=== PATIENT | female | born 1975 | race Caucasian/White ===

== ENCOUNTER → 2018-06-02 09:46 | Outpatient (CLI) | payer BC, SELFPAY ==
--- NOTE | 2018-06-02 09:49 | XR_ITS ---
EXAM: XR lumbar spine 6V w bending HISTORY: ITS.REASON: low back pain (FLEXION/EXTENSION) ORDERING PHYSICIAN: Dimple Levy PATIENT AGE: 43 years COMPARISON: None FINDINGS: There is normal curvature and alignment. There is prominent anterior ossific spurring at T11-12 level. All lumbar vertebrae appear intact and disc spaces are well-maintained. There is minimal osteophytic spurring of the anterior superior border of L4. There is no pars defect. Flexion and extension views were obtained showing somewhat decreased range of motion. The SI joints are normal. . IMPRESSION: Moderate degenerative disc disease T11-12 O minor degenerative change at the L3-4 level along with mild decrease in range of motion on flexion and extension views
[2018-06-02 10:55] LABS: Basophils # 0.1 K/mm3 (0-0.2); Basophils % 0.7 % (0.1-2.0); Eosinophils # 0.1 K/mm3 (0.0-0.4); Eosinophils % 1.5 % (0.1-12.0); Hematocrit 43.5 % (37.0-47.0); Hemoglobin 13.8 g/dL (12.2-16.2); Lymphocytes # 2.3 K/mm3 (0.7-4.5); Lymphocytes % 24.6 K/mm3 (10-50); Mean Corpuscular HGB Conc 31.7 g/dL (31.8-35.4); Mean Corpuscular Hemoglobin 26.7 pg (27.0-31.2); Mean Corpuscular Volume 84.4 fl (81-99); Mean Platelet Volume 7.6 fl (7.4-10.4); Monocytes # 0.5 K/mm3 (0.1-1.0); Monocytes % 5.2 % (1.7-9.3); Neutrophils # 6.3 K/mm3 (1.8-7.8); Neutrophils % 68.1 % (37.0-80.0); Platelet Count 282 K/mm3 (142-424); Red Blood Count 5.15 M/mm3 (4.20-5.40); Red Cell Distribution Width 14.1 % (11.5-17.5); White Blood Count 9.2 K/mm3 (4.8-10.8)
[2018-06-02 11:30] LABS: Alanine Aminotransferase 135 U/L (12-78); Albumin Level 3.5 gm/dL (3.4-5.0); Albumin/Globulin Ratio 1.1 (1.1-1.8); Alkaline Phosphatase 113 U/L (46-116); Anion Gap 11.4 mEq/L (5-15); Aspartate Amino Transferase 62 U/L (15-37); Bilirubin,Total 0.2 mg/dL (0.2-1.0); Blood Urea Nitrogen 8 mg/dL (7-18); Carbon Dioxide 31 mmol/L (21.0-32.0); Chloride 105 mmol/L (98-107); Creatinine,Serum 0.75 mg/dL (0.55-1.02); Estimated Glomerular Filt Rate 84 ml/min (>60); GFR (African American) 101 ML/MIN (>60); Globulin 3.2 gm/dl (1.3-3.2); Glucose 109 mg/dL (74-106); Potassium 4.4 mmoL/L (3.5-5.1); Sodium 143 mmol/L (136-145); Total Protein,Serum 6.7 gm/dL (6.4-8.2)
[2018-06-02 13:53] LABS: Erythrocyte Sedimentation Rate 16 mm/hr (0-20)
== END ==
PROVIDERS: Family Provider Family Medicine; PCP Family Medicine; Referring Provider Specialist; Visit Provider Nurse Practitioner Family
DX: M54.5 Low back pain (principal); M25.571 Pain in right ankle and joints of right foot; G25.81 Restless legs syndrome; G47.33 Obstructive sleep apnea (adult) (pediatric)
CPT/HCPCS: 36415; 72114; 80053; 85025; 85651

== ENCOUNTER → 2018-07-06 09:48 | Outpatient (POV) | payer BC, SELFPAY | PROVIDERS: Family Provider Family Medicine; PCP Family Medicine; Visit Provider Specialist | DX: G25.81 Restless legs syndrome (principal); M54.5 Low back pain; G47.33 Obstructive sleep apnea (adult) (pediatric) | CPT/HCPCS: 95886; 95908 ==

== ENCOUNTER → 2018-07-13 10:02 | Outpatient (CLI) | payer BC, SELFPAY ==
[2018-07-13 11:12] LABS: Ferritin 31 ng/mL (8-388); Free T4 (Free Thyroxine) 0.91 ng/dl (0.76-1.46); Thyroid Stimulating Hormone 3.47 uIU/ml (0.358-3.740)
[2018-07-14 08:28] LABS: Iron 36 ug/dL (27-159); Iron Saturation 9 % (15-55); UIBC 363 ug/dL (131-425); Vitamin B12 541 pg/mL (232-1245)
[2018-07-15 14:50] LABS: Ceruloplasmin 21.7 mg/dL (19.0-39.0); Triiodothyronine (T3) Total 171 ng/dL (71-180)
== END ==
PROVIDERS: Nurse Practitioner Family; Family Provider Family Medicine; PCP Family Medicine; Visit Provider Specialist
DX: G25.81 Restless legs syndrome (principal); M54.5 Low back pain
CPT/HCPCS: 36415; 82390; 82607; 82728; 82746; 83540; 83550; 83880; 84439; 84443; 84480

== ENCOUNTER → 2018-10-19 08:26 | Outpatient (POV) | payer BC, SELFPAY | PROVIDERS: Visit Provider Nurse Practitioner Acute Care | DX: Z00.00 Encounter for general adult medical examination without abnormal findings (principal) ==